=== PATIENT | male | born 1980 | race Asian ===

== ENCOUNTER 2018-08-05 04:35 | Emergency (ER) | payer OTHER ==
[2018-08-05] MEDS ORDERED: PHENAZOPYRIDINE HCL 200 MG TAB PO ONE (05:02)
--- NOTE | 2018-08-05 05:19 | EDPHY ---
H & P Stated Complaint: POSS UTI, DYSURIA, HEMATURIA X 2 DAYS Time Seen by Provider: 08/05/18 04:47 HPI/ROS: HPI The patient presents with dysuria, urgency, frequency, hematuria which began yesterday and has gotten progressively worse. His symptoms started slowly and he describes a burning pain each time he urinates. He has not been able to sleep much overnight because of his symptoms. He does not have any fevers, chills, nausea, vomiting, flank pain, abdominal pain. He has no prior history of urinary tract infection. He has no prior history of sexually transmitted infection. He says he is in a monogamous relationship with his . REVIEW OF SYSTEMS 10 systems were reviewed and negative with the exception of the elements mentioned in the history of present illness. PMHx: Healthy Soc Hx: Here with a friend PHYSICAL General Appearance: Alert, no distress Eyes: Pupils equal and round no pallor or injection ENT, Mouth: Mucous membranes moist Respiratory: There are no retractions, lungs are clear to auscultation Cardiovascular: Regular rate and rhythm Gastrointestinal: Abdomen is soft with mild suprapubic tenderness, no masses, bowel sounds normal Neurological: A&O, moves all extremities Skin: Warm and dry, no rashes Musculoskeletal: Neck is supple non tender Extremities: symmetrical, full range of motion Psychiatric: Patient is oriented X 3, there is no agitation Source: Patient Exam Limitations: No limitations - Personal History Current Tetanus Diphtheria and Acellular Pertussis (TDAP): No - Medical/Surgical History Hx Asthma: No Hx Chronic Respiratory Disease: No Hx Diabetes: No Hx Cardiac Disease: No Hx Renal Disease: No Hx Cirrhosis: No Hx Alcoholism: No Hx HIV/AIDS: No Hx Splenectomy or Spleen Trauma: No Other PMH: DENIES - Social History Smoking Status: Never smoked Constitutional: Initial Vital Signs Temperature (C) 36.8 C 08/05/18 04:39 Heart Rate 104 H 08/05/18 04:39 Respiratory Rate 16 08/05/18 04:39 Blood Pressure 128/94 H 08/05/18 04:39 O2 Sat (%) 97 08/05/18 04:39 O2 Delivery Mode Room Air Allergies/Adverse Reactions: No Known Allergies Allergy (Unverified 08/05/18 04:39) Home Medications: Medication Instructions Recorded levOFLOXACIN [levAQUIN (*)] 750 mg PO DAILY #14 tab 08/05/18 Medical Decision Making Differential Diagnosis: 38-year-old healthy male presents with 1 day of irritative voiding symptoms with hematuria. He does not have any flank pain, nausea or vomiting. Here, he is given peridium. UA was checked had he does have signs of urinary tract infection. I will treat him for prostatitis. We have ordered gonorrhea and chlamydia testing, however I suspect he is low risk, thus I will treat him for bacterial prostatitis. - Data Points Laboratory Results: 08/05/18 08/05/18 05:00 04:45 Urine Color YELLOW Urine Appearance CLEAR Urine pH 7.0 (5.0-7.5) Ur Specific [place] 1.002 (1.002-1.030) Urine Protein NEGATIVE (NEGATIVE) Urine Ketones NEGATIVE (NEGATIVE) Urine Blood 3+ H (NEGATIVE) Urine Nitrate NEGATIVE (NEGATIVE) Urine Bilirubin NEGATIVE (NEGATIVE) Urine Urobilinogen NEGATIVE EU EU (0.2-1.0) Ur Leukocyte Esterase 3+ H (NEGATIVE) Urine RBC 15-25 /hpf H /hpf (0-3) Urine WBC 50-182 /hpf H /hpf (0-3) Ur Epithelial Cells TRACE /lpf /lpf (NONE-1+) Urine Bacteria 1+ /hpf H /hpf (NONE SEEN) Urine Mucus TRACE /lpf /lpf (NONE-1+) Urine Glucose NEGATIVE (NEGATIVE) C.trachomatis RNA (TMA) Pending N.gonorrhoeae RNA (TMA) Pending Medications Given: Discontinued Medications Levofloxacin (Levaquin) 750 mg PO EDNOW ONE PRN Reason: Protocol Stop: 08/05/18 05:03 Last Admin: 08/05/18 05:09 Dose: 750 mg Phenazopyridine HCl (Pyridium) 200 mg PO EDNOW ONE Stop: 08/05/18 05:03 Last Admin: 08/05/18 05:09 Dose: 200 mg Departure - Departure Disposition: Home, Routine, Self-Care Clinical Impression: Urinary tract infection Qualifiers: Urinary tract infection type: site unspecified Hematuria presence: with hematuria Qualified Code(s): N39.0 - Urinary tract infection, site not specified ; R31.9 - Hematuria, unspecified; R31.9 - Hematuria, unspecified Condition: Good Instructions: Urinary Tract Infection in Men (ED) Additional Instructions: Please make sure to drink plenty of fluids. You should take the antibiotic as prescribed. I would like for you to follow up with your primary care doctor next week unless your feeling completely better. Referrals: Sharda Muniz MD [Primary Care Provider] - As per Instructions Prescriptions: levOFLOXACIN [levAQUIN (*)] 750 mg PO DAILY #14 tab
[2018-08-05] MEDS ORDERED: HYDROCODONE/APAP 5/325 TAB PO ONE (05:56)
[2018-08-05] MEDS ORDERED: IBUPROFEN 200 MG TAB PO ONE (05:56)
[2018-08-05 06:09] VITALS: BP 127/63
[2018-08-07 11:42] LABS: GC AMPLIFICATION GENPROBE NEGATIVE (NEGATIVE)
== END 2018-08-05 06:09 | disposition home or self-care (01) ==
DX: R31.9 Hematuria, unspecified (principal)